=== PATIENT | female | born 1995 | race Caucasian/White ===

== ENCOUNTER → 2018-05-14 10:33 | Outpatient (CLI) | payer OTHER, SELFPAY ==
[2018-05-14 11:57] LABS: Thyroid Stimulating Hormone 0.99 uIU/ml (0.358-3.740)
== END ==
PROVIDERS: PCP Family Medicine; Visit Provider Obstetrics & Gynecology
DX: E05.90 Thyrotoxicosis, unspecified without thyrotoxic crisis or storm (principal); Z34.90 Encounter for supervision of normal pregnancy, unspecified, unspecified trimester
CPT/HCPCS: 36415; 84443

== ENCOUNTER → 2018-06-25 09:54 | Outpatient (CLI) | payer OTHER, SELFPAY ==
[2018-06-28 23:07] LABS: AFP Value 23.2 ng/mL (.); DIA Value 256.69 pg/mL (.); DSR (Second Trimester) 1 IN 489 (.); Gest. Age on Collection Date 15.9 WEEKS (.); Maternal Age At EDD 24.3 yr (.); OSBR Risk 1 IN 10000 (.); Results Report (.); hCG MoM 1.16 (.); uE3 MoM 0.61 (.); uE3 Value 0.42 ng/mL (.)
[2018-06-29 06:18] LABS: Gestat. Age Based On EDD (.)
== END ==
PROVIDERS: Family Provider Family Medicine; PCP Family Medicine; Visit Provider Obstetrics & Gynecology
DX: Z34.90 Encounter for supervision of normal pregnancy, unspecified, unspecified trimester (principal)
CPT/HCPCS: 36415; 82106

== ENCOUNTER → 2018-09-16 09:22 | Outpatient (CLI) | payer OTHER, SELFPAY ==
[2018-09-16 10:41] LABS: Glucose 1 Hour 156 mg/dL (74-106)
== END ==
PROVIDERS: Visit Provider Obstetrics & Gynecology
DX: Z34.90 Encounter for supervision of normal pregnancy, unspecified, unspecified trimester (principal)
CPT/HCPCS: 36415; 82951

== ENCOUNTER → 2018-09-20 16:52 | Outpatient (CLI) | payer OTHER, SELFPAY ==
[2018-09-20 17:19] LABS: Basophils % 0.2 % (0.1-2.0); Eosinophils # 0.2 K/mm3 (0.0-0.4); Eosinophils % 2.1 % (0.1-12.0); Hematocrit 32.2 % (37.0-47.0); Hemoglobin 10.7 g/dL (12.2-16.2); Lymphocytes # 2.4 K/mm3 (0.7-4.5); Lymphocytes % 21.3 % (10-50); Mean Corpuscular HGB Conc 33.4 g/dL (31.8-35.4); Mean Corpuscular Hemoglobin 27.6 pg (27.0-31.2); Mean Corpuscular Volume 82.6 fl (81-99); Mean Platelet Volume 7.5 fl (7.4-10.4); Monocytes # 0.6 K/mm3 (0.1-1.0); Monocytes % 5.6 % (1.7-9.3); Neutrophils % 70.7 % (37.0-80.0); Platelet Count 253 K/mm3 (142-424); Red Cell Distribution Width 14.2 % (11.5-17.5); White Blood Count 11.3 K/mm3 (4.8-10.8)
[2018-09-20 17:44] LABS: Activated Partial Thrombo Time 27.6 seconds (23.6-34.0); Fibrinogen 474 mg/dL (204-500); INR 0.86 (0.9-1.1); Prothrombin Time 8.9 seconds (9.4-11.8)
[2018-09-20 17:55] LABS: D-Dimer 214 ng/mL (0-400)
[2018-09-20 18:51] LABS: Alanine Aminotransferase 22 U/L (12-78); Anion Gap 16.5 mEq/L (5-15); Aspartate Amino Transferase 10 U/L (15-37); Blood Urea Nitrogen 8 mg/dL (7-18); Calcium 8.6 mg/dL (8.5-10.1); Carbon Dioxide 20 mmol/L (21.0-32.0); Chloride 105 mmol/L (98-107); Creatinine,Serum 0.51 mg/dL (0.55-1.02); Estimated Glomerular Filt Rate 148 ml/min (>60); GFR (African American) 179 ML/MIN (>60); Glucose 97 mg/dL (74-106); Potassium 3.5 mmoL/L (3.5-5.1); Sodium 138 mmol/L (136-145); Uric Acid 2.7 mg/dL (2.6-7.2)
== END ==
PROVIDERS: Visit Provider Obstetrics & Gynecology
DX: O14.90 Unspecified pre-eclampsia, unspecified trimester (principal)
CPT/HCPCS: 36415; 80048; 84450; 84460; 84550; 85025; 85378; 85384; 85610; 85730

== ENCOUNTER → 2018-09-22 06:00 | Outpatient (CLI) | payer OTHER, SELFPAY ==
[2018-09-22 14:33] LABS: Total Protein,Urine Random 17.1 mg/dL (0.0-11.9)
[2018-09-22 15:39] LABS: Total Protein 24 Hour,Urine 239 mg/24 hr (40-90); Total Volume,Urine 1400 mL (600-1600)
== END ==
PROVIDERS: Visit Provider Obstetrics & Gynecology
DX: O14.90 Unspecified pre-eclampsia, unspecified trimester (principal)
CPT/HCPCS: 84155

== ENCOUNTER → 2018-09-23 08:16 | Outpatient (CLI) | payer OTHER, SELFPAY ==
[2018-09-23 08:43] LABS: Glucose,Fasting 99 mg/dL (60-105)
[2018-09-23 09:45] LABS: Glucose 1 Hour 160 mg/dL (74-106)
[2018-09-23 11:22] LABS: Glucose 2 Hour 118 mg/dL (74-106)
[2018-09-23 12:11] LABS: Glucose 3 Hour 103 mg/dL (74-106)
== END ==
PROVIDERS: Visit Provider Obstetrics & Gynecology
DX: Z34.90 Encounter for supervision of normal pregnancy, unspecified, unspecified trimester (principal)
CPT/HCPCS: 36415; 82951

== ENCOUNTER → 2018-09-30 15:53 | Outpatient (CLI) | payer OTHER, SELFPAY ==
[2018-09-30 16:35] LABS: Basophils % 0.2 % (0.1-2.0); Eosinophils # 0.3 K/mm3 (0.0-0.4); Eosinophils % 2.6 % (0.1-12.0); Hematocrit 36.7 % (37.0-47.0); Hemoglobin 11.5 g/dL (12.2-16.2); Lymphocytes # 2.3 K/mm3 (0.7-4.5); Lymphocytes % 18.1 % (10-50); Mean Corpuscular HGB Conc 31.4 g/dL (31.8-35.4); Mean Corpuscular Hemoglobin 26.9 pg (27.0-31.2); Mean Corpuscular Volume 85.7 fl (81-99); Mean Platelet Volume 7.6 fl (7.4-10.4); Monocytes # 0.8 K/mm3 (0.1-1.0); Monocytes % 6.2 % (1.7-9.3); Neutrophils # 9.1 K/mm3 (1.8-7.8); Platelet Count 253 K/mm3 (142-424); Red Blood Count 4.28 M/mm3 (4.20-5.40); Red Cell Distribution Width 15.1 % (11.5-17.5); White Blood Count 12.5 K/mm3 (4.8-10.8)
[2018-09-30 17:26] LABS: D-Dimer 195 ng/mL (0-400)
[2018-09-30 17:40] LABS: Activated Partial Thrombo Time 27.7 seconds (23.6-34.0); INR 0.87 (0.9-1.1)
[2018-09-30 17:53] LABS: Alanine Aminotransferase 19 U/L (12-78); Anion Gap 16.4 mEq/L (5-15); Aspartate Amino Transferase 15 U/L (15-37); Blood Urea Nitrogen 7 mg/dL (7-18); Calcium 9.1 mg/dL (8.5-10.1); Carbon Dioxide 22 mmol/L (21.0-32.0); Chloride 104 mmol/L (98-107); Creatinine,Serum 0.56 mg/dL (0.55-1.02); Estimated Glomerular Filt Rate 133 ml/min (>60); GFR (African American) 161 ML/MIN (>60); Glucose 77 mg/dL (74-106); Potassium 4.4 mmoL/L (3.5-5.1); Sodium 138 mmol/L (136-145); Uric Acid 2.7 mg/dL (2.6-7.2)
[2018-09-30 18:23] LABS: Fibrinogen 500 mg/dL (204-500)
== END ==
PROVIDERS: Visit Provider Obstetrics & Gynecology
DX: Z34.90 Encounter for supervision of normal pregnancy, unspecified, unspecified trimester (principal)
CPT/HCPCS: 36415; 80048; 84450; 84460; 84550; 85025; 85378; 85384; 85610; 85730

== ENCOUNTER 2018-10-12 20:34 | Outpatient (CLI) | payer OTHER, SELFPAY ==
[2018-10-12 21:12] VITALS: BMI 34.0
[2018-10-12 21:16] LABS: Microscopic, Urine URINE MICROSCOPIC (MICROSCOPIC)
[2018-10-12 21:18] VITALS: BP 137/78; PULSE 97; RESP 16; TEMP 36.7; O2SAT 98; BMI 34.0
[2018-10-12 21:21] LABS: Appearance,Urine CLEAR (Clear); Bilirubin,Urine Negative (Negative); Blood, Urine Negative (Negative); Color,Urine YELLOW (Yellow); Glucose,Urine (UA) 1+ (Negative); Ketones,Urine Negative (Negative); Leukocyte Esterase,Urine Negative (Negative); Nitrate,Urine Negative (Negative); Protein,Urine Negative (Negative); Specific Gravity, Urine 1.025 (1.005-1.030); Urobilinogen,Urine 0.2 EU/dl (0.2)
[2018-10-12 21:31] LABS: Fetal Fibronectin (Rapid) Negative (Negative)
[2018-10-12 21:34] LABS: Bacteria,Urine 1+ /lpf; Mucus,Urine 1+ /lpf
[2018-10-12 21:44] LABS: Fetal Membrane Rupture (Rapid) Negative (Negative)
== END 2018-10-12 21:54 | disposition home or self-care (01) ==
LOC: OBOUT 20:40 → OB 20:40
PROVIDERS: PCP Obstetrics & Gynecology; Visit Provider Nurse Practitioner Obstetrics & Gynecology
DX: O26.893 Other specified pregnancy related conditions, third trimester (principal); Z3A.31 31 weeks gestation of pregnancy; M54.5 Low back pain; R10.9 Unspecified abdominal pain
CPT/HCPCS: 59025; 81001; 82731; 84112